=== PATIENT | female | born 1935 | race Caucasian/White ===

== ENCOUNTER 2016-06-21 08:01 | Emergency (ER) | payer OTHER ==
[~2016-06-21] VITALS: Ht 157.5 cm; Wt 61.2 kg
--- NOTE | 2016-06-21 08:53 | ED GI/GU/ABDOMINAL COMPLAINT ---
History of Present Illness General Chief Complaint: Abdominal Pain/Flank Pain Stated Complaint: ? CONSIPATION Source: patient Exam Limitations: no limitations Allergies Coded Allergies: acetaminophen (From PERCOCET) (UNKNOWN 06/21/16) azithromycin (RASH 06/21/16) carvedilol (From COREG) (UNKNOWN 06/21/16) clarithromycin (From BIAXIN) (RASH 06/21/16) oxycodone (From PERCOCET) (UNKNOWN 06/21/16) pneumococcal vaccine (ANAPHYLAXIS 06/21/16) Triage Note: PT TO ED C/O CONSTIPATION X 3-4 DAYS. STATES TOOK PRUNE JUICE WITH RELIEF, AND HAS HAD DIARRHEA X 3 DAYS. BUT PT STATES SHE STILL FEELS CONSTIPATED. DENIES N/V. Triage Nurses Notes Reviewed? yes ? N Is pt currently ? No HPI: This patient is an 80-year-old female with a past medical history including hypertension and dyslipidemia who presented to the emergency department today for evaluation constipation and diarrhea. Patient reported that approximately 4 weeks ago she started feeling constipated. She reported that she was passing gas and that she was moving, "small bits of stool." Approximately 3-4 days ago she drank some prune juice and since that time she has had multiple episodes of watery diarrhea every day. She was unable to quantify how much diarrhea she has been having each day. She denied any blood in the stool. The patient reported that she often gets the urge to move her bowels, but nothing comes out. Other times she has episodes of diarrhea. The patient did report some urinary frequency without any urgency, burning with urination, or blood in the urine. She denied any sick contacts. The patient denied any nausea, vomiting, abdominal pain, chest pain, difficulty breathing, fevers, chills, back pain, saddle paresthesia, bowel incontinence, bladder incontinence. The patient has not been on any recent antibiotics. She did report, "my rectum is sore and it feels like it has a pulse." (ASAF ENGLISH,CB) Vital Signs & Intake/Output Vital Signs & Intake/Output Vital Signs Date Time Temp Pulse Resp B/P Pulse O2 O2 Flow FiO2 Ox Delivery Rate 06/21 1301 98.7 63 15 166/72 94 Room Air Room Air ED Intake and Output 06/22 0000 06/21 1200 Intake Total 0 Output Total Balance 0 Intake, Oral 0 Patient 135 lb Weight Past History Travel History Traveled to [place] past 21 day No Medical History Any Pertinent Medical History? see below for history Cardiovascular: hypertension, hyperlipidemia Surgical History Surgical History: non-contributory Psychosocial History What is your primary language German Tobacco Use: Never used ETOH Use: denies use Illicit Drug Use: denies illicit drug use Family History Hx Contributory? No (CB RON PA-C) Review of Systems Review of Systems Constitutional: Reports: no symptoms. EENTM: Reports: no symptoms. Respiratory: Reports: no symptoms. Cardiovascular: Reports: no symptoms. GI: Reports: see HPI. Genitourinary: Reports: see HPI. Musculoskeletal: Reports: no symptoms. Skin: Reports: no symptoms. Neurological/Psychological: Reports: no symptoms. Hematologic/Endocrine: Reports: no symptoms. Immunologic/Allergic: Reports: no symptoms. All Other Systems: Reviewed and Negative (CB RON PA-C) Physical Exam Physical Exam Gastrointestinal: normal bowel sounds, no organomegaly, soft. Mild distention. No ascites. No overlying ecchymosis. Tenderness to palpation in the left upper quadrant with no rebound or guarding. No McBurney's point tenderness. Negative Lofton sign. Negative Rovsing sign. No masses appreciated Comments: Well-developed well-nourished person in no acute distress HEENT: Normal EENT exam, head normocephalic, moist mucous membranes PERRLA bilaterally Neck: Supple, no lymphadenopathy Back: Normal inspection. No CVA tenderness. No midline tenderness Cardiovascular: Regular rate and rhythm with no murmurs, rubs, or gallops Respiratory: No respiratory distress. Speaking in full sentences. Breath sounds clear to auscultation bilaterally with no wheezes, rales, rhonchi Extremity: Normal and equal pulses. Neuro: Alert oriented x3, cranial nerves II through XII grossly intact. Skin: No appreciable rash on exposed skin, skin is warm and dry. Psych: Mood and affect is normal Core Measures ACS in differential dx? No Severe Sepsis Present: No Septic Shock Present: No (CB RON PA-C) Progress Differential Diagnosis: AAA, AMI, appendicitis, biliary colic, bowel obstruction , colon cancer, cholecystitis, diverticulitis, gastritis, hepatitis, ischemic bowel, inflamm bowel dis, intrauterine , kidney stone, pancreatitis, PUD/GERD, perforated viscous, SBO, UTI/pyelo Diagnostic Imaging: Viewed by Me: CT Scan. Discussed w/RAD: CT Scan. Radiology Impression: PATIENT: TIBURCIO PADILLA PRESENT AGE: 80 PATIENT ACCOUNT NO: [id number] : 34 LOCATION: [facility] ORDERING PHYSICIAN: CB RON PA-C SERVICE DATE: 06/21/16 EXAM TYPE: CAT - CT ABD & PELVIS W IV CONTRAST EXAMINATION: CT ABDOMEN AND PELVIS WITH CONTRAST CLINICAL INFORMATION: Diarrhea, constipation. COMPARISON: None TECHNIQUE: Multidetector volumetric imaging was performed of the abdomen and pelvis before and after the IV administration of 95 mL of Optiray 320 intravenous contrast. Sagittal and coronal reformatted images were obtained on the technologist's workstation. DLP: 258 mGy-cm FINDINGS: LUNG BASES: The visualized lung bases are unremarkable. LIVER, GALLBLADDER, AND BILIARY TREE: Subcentimeter hypoechoic densities are present in the left hepatic lobe inferiorly, in the posterior right hepatic lobe, and at the inferior tip of the right lobe. These most likely represent small cysts. The common bile duct is enlarged, measuring 10 mm in diameter which may be within acceptable range for patient age. The pancreatic duct is mildly prominent no intraluminal filling defects or lesions. PANCREAS: No pancreatic lesions or inflammatory stranding. SPLEEN: Unremarkable ADRENAL GLANDS: Unremarkable KIDNEYS AND URETERS: There is a 7 mm nonobstructing calculus in the lower pole of the left kidney. There are small foci of cortical scarring. Nephrograms are symmetric. No hydronephrosis. BLADDER: Unremarkable GASTROINTESTINAL TRACT: The rectum is distended with stool with mild surrounding inflammatory stranding and edema of the presacral fat suggesting stercoral colitis. No significant wall thickening is evident. There are scattered colonic diverticula. Nondistended stool-filled large bowel. No evidence of obstruction. ABDOMINAL WALL: No significant hernia is appreciated. LYMPH NODES: Normal. VASCULAR: Scattered atherosclerotic calcifications. PELVIC VISCERA: Calcified uterine fibroid. OSSEOUS STRUCTURES: No suspicious lesions. IMPRESSION: The rectum is distended with stool, with surrounding inflammatory changes and presacral edema suggesting stercoral colitis/rectal fecal impaction. No proximal bowel dilatation to indicate obstruction. Left nephrolithiasis. DICTATED BY: ARELY ARMSTRONG MD DATE/TIME DICTATED:06/21/16 1046 COAT EXAMINER:LAURA DATE/TIME TRANSCRIBED:06/21/16 / 1046 CONFIDENTIAL, DO NOT COPY WITHOUT APPROPRIATE AUTHORIZATION. <Electronically signed in Other Vendor System> SIGNED BY: PATTI BELTRANARELY 06/21/16 1108 Initial ED EKG: none Comments: 06/21/2016 11:17:14 AM: I discussed this patient with Dr. Saucedo. Likely fecal impaction. The patient will be given a soapsuds enema here in the emergency department and GI to follow up with. She is in agreement with this plan. 06/21/2016 12:26:30 PM: Dr. Saucedo that the patient's bedside of a space evaluation. No success with soapsuds enema. I will attempt manual disimpaction. 06/21/2016 12:48:05 PM: I performed a manual disimpaction. I was able to remove a significant amount of stool from the rectal vault. The patient tolerated the procedure well. Scant amount of blood noticed in the stool. This patient had brown stool guaiac positive. H&H is stable. This patient will have GI follow- up. (CB RON PA-C) Plan of Care: Orders Procedure Date/time Status Enema 06/21 1120 Active Laboratory Tests 06/21/16 1113: Lactic Acid Cancelled Departure Departure Disposition: HOME OR SELF CARE Condition: Stable Clinical Impression Primary Impression: Fecal impaction in rectum Referrals: ELLIOT BELTRAN,SIMONE Cid UNKNOWN (PCP/Family) Additional Instructions: Please increase fiber intake in your diet. Be sure to follow up with both your primary care physician as well as the auricular detoxification specialist whose information has been provided to this packet. Please return to the emergency department should any of your symptoms worsen or for any other concerns. Departure Forms: Customer Survey General Discharge Information (CB RON PA-C) PA/KINESEOLOGIST Co-Sign Statement Statement: ED Attending supervision documentation- [x] I saw and evaluated the patient. I have also reviewed all the pertinent lab results and diagnostic results. I agree with the findings and the plan of care as documented in the PA's/KINESEOLOGIST's documentation. [] I have reviewed the ED Record and agree with the PA's/KINESEOLOGIST's documentation. [] Additions or exceptions (if any) to the PAs/KINESEOLOGIST's note and plan are summarized below: [] (LILLY SAUCEDO DO) PA/KINESEOLOGIST Co-Sign Statement Statement: ED Attending supervision documentation- [x] I saw and evaluated the patient. I have also reviewed all the pertinent lab results and diagnostic results. I agree with the findings and the plan of care as documented in the PA's/KINESEOLOGIST's documentation. [] I have reviewed the ED Record and agree with the PA's/KINESEOLOGIST's documentation. [] Additions or exceptions (if any) to the PAs/KINESEOLOGIST's note and plan are summarized below: [] (LILLY SAUCEDO DO
[2016-06-21 09:04] LABS: ABSOLUTE BASOPHIL COUNT 0 /CUMM (0.0-0.2); ABSOLUTE EOSINOPHIL COUNT 0 /CUMM (0.0-0.7); ABSOLUTE GRANULOCYTE CT 7.2 /CUMM (1.4-6.5); ABSOLUTE LYMPH COUNT 0.7 /CUMM (1.2-3.4); ABSOLUTE MONOCYTE COUNT 0.5 /CUMM (0.10-0.60); BASOPHIL % 0.3 % (0.0-2.0); EOSINOPHIL % 0.4 % (0-5); GRANULOCYTE % 85.4 % (42.2-75.2); HEMATOCRIT 39.7 % (37-47); MEAN CORPUSCULAR HGB 29.5 PG (27.0-31.0); MEAN CORPUSCULAR HGB CONC 33.3 G/DL (33.0-37.0); MEAN CORPUSCULAR VOLUME 88.6 FL (81.0-99.0); PLATELET COUNT 229 /CUMM (130-400); RBC DISTRIBUTION WIDTH 12.6 % (11.5-14.5); RED BLOOD CELL CT 4.48 /CUMM (4.20-5.40); WHITE BLOOD CELL COUNT 8.4 /CUMM (4.8-10.8)
--- NOTE | 2016-06-21 11:08 | CT SCAN REPORT ---
EXAMINATION: CT ABDOMEN AND PELVIS WITH CONTRAST CLINICAL INFORMATION: Diarrhea, constipation. COMPARISON: None TECHNIQUE: Multidetector volumetric imaging was performed of the abdomen and pelvis before and after the IV administration of 95 mL of Optiray 320 intravenous contrast. Sagittal and coronal reformatted images were obtained on the technologist's workstation. DLP: 258 mGy-cm FINDINGS: LUNG BASES: The visualized lung bases are unremarkable. LIVER, GALLBLADDER, AND BILIARY TREE: Subcentimeter hypoechoic densities are present in the left hepatic lobe inferiorly, in the posterior right hepatic lobe, and at the inferior tip of the right lobe. These most likely represent small cysts. The common bile duct is enlarged, measuring 10 mm in diameter which may be within acceptable range for patient age. The pancreatic duct is mildly prominent no intraluminal filling defects or lesions. PANCREAS: No pancreatic lesions or inflammatory stranding. SPLEEN: Unremarkable ADRENAL GLANDS: Unremarkable KIDNEYS AND URETERS: There is a 7 mm nonobstructing calculus in the lower pole of the left kidney. There are small foci of cortical scarring. Nephrograms are symmetric. No hydronephrosis. BLADDER: Unremarkable GASTROINTESTINAL TRACT: The rectum is distended with stool with mild surrounding inflammatory stranding and edema of the presacral fat suggesting stercoral colitis. No significant wall thickening is evident. There are scattered colonic diverticula. Nondistended stool-filled large bowel. No evidence of obstruction. ABDOMINAL WALL: No significant hernia is appreciated. LYMPH NODES: Normal. VASCULAR: Scattered atherosclerotic calcifications. PELVIC VISCERA: Calcified uterine fibroid. OSSEOUS STRUCTURES: No suspicious lesions. IMPRESSION: The rectum is distended with stool, with surrounding inflammatory changes and presacral edema suggesting stercoral colitis/rectal fecal impaction. No proximal bowel dilatation to indicate obstruction. Left nephrolithiasis.
[2016-06-21 13:01] VITALS: BP 166/72
== END 2016-06-21 13:14 ==
LOC: ERH 08:01
PROVIDERS: Physician Assistant
DX: K56.41 Fecal impaction (principal); R35.0 Frequency of micturition
CPT/HCPCS: 74177; 81001; 87086; 87804; 87804-59; Q9965

== ENCOUNTER → 2016-11-05 | Day surgery (SDC) | payer OTHER ==
[~2016-11-05] VITALS: Ht 157.5 cm; Wt 58.1 kg
--- NOTE | 2016-11-05 14:01 | Operative Report ---
Operative/Inv Procedure Report Surgery Date: 11/05/16 Name of Procedure: transurethral resection of bladder tumors. Pre-Operative Diagnosis: bladder tumors Post-Operative Diagnosis: same Estimated Blood Loss: scant Surgeon/Accounts Receivable Associate: LUCY CHIANG MD Anesthesia: laryngeal mask airway Drains: 16fr medina Specimens: bladder tumor fragments Complications: none Condition: stable Operative Indication: bladder tumors Operative/Procedure Note Note: This is an operative dictation on patient Kelly Lockwood. She was identified in the holding area and consented for transurethral resection of bladder tumors. The risks benefits alternatives of the surgery were given. All questions were answered. Patient was taken to the operating placed on the operating table in supine position. Timeout was performed. General anesthesia was given with LMA and IV antibiotics were infused. Patient was placed in the dorsolithotomy position and prepped and draped in the standard sterile fashion. Cystoscopy was performed the bladder was globally inspected. It was difficult to see the bladder tumors as they were flat and not papillary and along the right lateral wall. It was an area was previously resected as the scar was visible. The tumor also draped over the right ureteral orifice as well and a superficial manner. The resectoscope was then placed into the bladder and the cutting setting was used to resect the larger flat bladder tumor that was lateral to the ureteral orifice. At the fragments were sent for pathology evaluation. Coagulation was used right over the ureteral orifice and a very superficial manner. Take care was taken not to occlude the ureteral orifice. The edge of the resected tumor bed was coagulated as well. The remainder of the bladder was examined and no other small tumor satellite lesions were found. Pictures were taken prior to resecting the tumor. Patient tolerated the procedure well. 60 Ukrainian Medina catheter was placed to drain the bladder. This was attached to a leg bag. Patient was cleaned of the Betadine solution. She was transferred to the recovery room in stable condition. Findings: flat bladder tumors on the right lateral wall and over the right ureteral orifice Discharge Disposition: PACU
== END ==
LOC: STS 01:27
DX: C67.8 Malignant neoplasm of overlapping sites of bladder (principal); I10 Essential (primary) hypertension; M19.90 Unspecified osteoarthritis, unspecified site; Z79.82 Long term (current) use of aspirin; Z85.51 Personal history of malignant neoplasm of bladder
CPT/HCPCS: J0690